=== PATIENT | female | born 1935 | race Caucasian/White ===

== ENCOUNTER 2016-12-17 12:00 | Outpatient (CLI) | payer MEDICARE ==
[2016-12-17] MEDS ORDERED: GADOBUTROL 7.5 MMOL/7.5 ML VIAL IVP ONE (13:04)
--- NOTE | 2016-12-18 15:24 | MRI Report ---
EXAM: MRI LUMBAR SPINE WITHOUT AND WITH CONTRAST EXAM DATE: 12/17/2016 01:18 PM. CLINICAL HISTORY: Chronic low back pain for 2 years. Difficulty walking. Greater on the left. COMPARISONS: MRI lumbar spine 01/25/2016. TECHNIQUE: Multiplanar, multisequence T1-weighted and fluid-sensitive sequences of the lumbar spine b efore and after administration of intravenous contrast. IV contrast: 6.5 mL Gadavist. Other: None. FINDINGS: A 10 mm well-circumscribed T2 hyperintense focus which does not demonstrate enhancement and is T1 hyp ointense is seen in the pancreatic head on the axial images. No suspicious marrow replacement is identified in the cervical vertebral bodies. No nodular enhanceme nt is seen along the cauda equina nerve roots. The distal tip of the conus medullaris is seen at the level of the L1-L2 disk space. Enhancement involving the endplates at L5-S1 is felt to be diskogenic. There is patchy enhancement in the soft tissues adjacent to the facet joint bilateral L5-S1. There is patchy edema in these regions on the comparison study. Grade 1 retrolisthesis of L1 relative to L2 and L2 relative to L3 is again seen. Grade 1 anterolisthe sis of L5 relative to S1 is again seen. Loss of disk space height throughout the lumbar spine greates t at L4-L5 and L5-S1 is again seen. T10T11: Incompletely visualized. No central canal stenosis. T11 through L1: No central canal stenosis. L1-L2: A mild to moderate posterior disk protrusion is stable. No central canal or foraminal stenosis . L2-L3: A mild to moderate posterior disk protrusion is seen greater towards the right. Mild right for aminal stenosis is present. Superior lateral recess stenosis bilaterally greater on the right relativ e to the left is again seen. These findings are stable. L3-L4: A mild to moderate posterior disk protrusion is seen. Superior lateral recess narrowing is see n bilaterally. Mild bilateral foraminal stenosis is stable. L4-L5: A mild posterior disk protrusion is seen. There is a foraminal and far lateral component of th e disk protrusion particularly on the right. Superior lateral recess narrowing is seen bilaterally. N o central canal or foraminal stenosis. These findings are stable. L5-S1: A moderate posterior disk protrusion is seen with disk material extending into the foramen addison aterally. There is mild right and tesl-qy-kirnmnun left foraminal stenosis. Superior lateral recess s tenosis is seen bilaterally greater on the left relative to the right. Facet/ligamentum flavum hypertrophy is seen throughout the lumbar spine greatest in the lower lumbar spine. IMPRESSION: 1. Stable MRI of the lumbar spine. 2. No osseous metastatic disease. 3. Degenerative disk disease, spondylolisthesis, and facet hypertrophy are present at multiple levels discussed in detail. 4. No central canal stenosis. 5. Multilevel foraminal stenosis. This is greatest on the left at L5-S1. 6. Facet arthrosis is seen at multiple levels. The enhancement associated with the facet joints bilat erally at L5-S1 likely reflects more active areas of facet joint synovitis. 7. A T2 hyperintensity in the pancreatic head is seen on the comparison MRI. This could reflect a cys tic pancreatic lesion, either a pseudocyst or low-grade cystic pancreatic neoplasm. This is not prese nt on a comparison CT scan from 01/14/2007. Comment: The following findings are so common in adults without low back pain that while we report th eir presence, they must be interpreted with caution and in the context of the clinical situation. (Re oriana Chacko et al, Spine 2001) Prevalence of findings in patients without low back pain: Disk degeneration (any evidence): 92% Disk desiccation/T2 signal loss: 83% Disk height loss: 56% Disk bulge: 64% Disk protrusion: 32% Annular tear/high intensity zone: 38% [facility] Referring Provider Line: [phone] SITE ID: [id number]
== END 2016-12-17 12:01 | disposition home or self-care (01) ==
LOC: LAB 12:00
PROVIDERS: ATTEND Physician Assistant Medical
DX: M51.36 Other intervertebral disc degeneration, lumbar region (principal); M51.37 Other intervertebral disc degeneration, lumbosacral region; M47.896 Other spondylosis, lumbar region; M47.897 Other spondylosis, lumbosacral region; M43.16 Spondylolisthesis, lumbar region; M43.17 Spondylolisthesis, lumbosacral region; M51.26 Other intervertebral disc displacement, lumbar region; M51.27 Other intervertebral disc displacement, lumbosacral region
CPT/HCPCS: 72158; A9585

== ENCOUNTER 2016-12-23 11:20 | Outpatient (CLI) | payer MEDICARE ==
[2016-12-23 18:57] LABS: BASOPHILS # (AUTO) 0.1 10^3/uL (0.0-0.1); EOSINOPHILS # (AUTO) 0.2 10^3/uL (0.0-0.7); EOSINOPHILS % (AUTO) 2.6 %; HCT - HEMATOCRIT 42.3 % (37.0-47.0); LYMPHOCYTES # (AUTO) 1.4 10^3/uL (1.5-3.5); LYMPHOCYTES % (AUTO) 20.6 %; MEAN CORPUSCULAR HEMOGLOBIN 30.4 pg (27.0-31.0); MEAN CORPUSCULAR HGB CONC 33.1 g/dL (32.0-36.0); MEAN PLATELET VOLUME 9.2 fL (7.9-10.8); MONOCYTES # (AUTO) 0.5 10^3/uL (0.0-1.0); MONOCYTES % (AUTO) 7.9 %; NEUTROPHILS # (AUTO) 4.5 10^3/uL (1.5-6.6); NEUTROPHILS % (AUTO) 67.9 %; NUCLEATED RED BLOOD CELLS AUTO 0.1 /100WBC; RED CELL DISTRIBUTION WIDTH 13.7 % (12.0-15.0); UNCORRECTED WHITE BLOOD COUNT 6.7 x10^3/uL; WHITE BLOOD COUNT 6.7 x10^3/uL (4.8-10.8)
[2016-12-23 19:30] LABS: ALBUMIN/GLOBULIN RATIO 1.7 (1.0-2.2); BILIRUBIN,TOTAL 0.5 mg/dL (0.2-1.0); CALCIUM 9.4 mg/dL (8.5-10.3); CREATININE 0.9 mg/dL (0.4-1.0); TOTAL PROTEIN 6.9 g/dL (6.7-8.2)
== END 2016-12-23 11:21 | disposition home or self-care (01) ==
LOC: LAB.WCP 11:20
PROVIDERS: ATTEND Family Medicine
DX: R93.5 Abnormal findings on diagnostic imaging of other abdominal regions, including retroperitoneum (principal)
CPT/HCPCS: 36415; 80053; 82150; 83690; 85025

== ENCOUNTER 2016-12-29 15:48 | Outpatient (CLI) | payer MEDICARE ==
--- NOTE | 2017-01-08 14:35 | Mammography Report ---
DIGITAL SCREENING MAMMOGRAM: 12/29/2016 CLINICAL INDICATION: A 81-year-old with personal history of right breast cancer status post lumpecto my and radiation therapy, family history of breast cancer for screening. COMPARISON: Previous films from [place], [place] dated 01/30/2011, 12/23/2009, 07/12/2009, 10/09/2015. TECHNIQUE: Routine CC and MLO projections were obtained of the breasts. FINDINGS: The breasts demonstrate heterogeneously dense fibroglandular parenchyma bilaterally. Post operative and post-treatment changes in the right breast are stable. No suspicious masses, clustered microcalcifications, or regions of architectural distortion are identified IMPRESSION: BENIGN FINDINGS. RECOMMENDATION: Routine annual screening unless otherwise clinically indicated. BIRADS CATEGORY 2 - BENIGN FINDINGS. STANDARD QUALIFYING STATEMENTS 1. This examination was reviewed with the aid of Computer-Aided Detection (CAD). 2. A negative or benign imaging report should not delay biopsy if clinically suspicious findings are present. Consider surgical consultation if warranted. More than 5% of cancers are not identified by i maging. 3. Dense breasts may obscure an underlying neoplasm. JOB #: [id number] EXT JOB #:[id number]
== END 2016-12-29 15:49 | disposition home or self-care (01) ==
LOC: DI.N 15:48
PROVIDERS: ATTEND Family Medicine
DX: Z12.31 Encounter for screening mammogram for malignant neoplasm of breast (principal); Z85.3 Personal history of malignant neoplasm of breast
CPT/HCPCS: 77067

== ENCOUNTER 2017-10-26 08:16 | Outpatient (CLI) | payer MEDICARE ==
[2017-10-26] MEDS ORDERED: IOPAMIDOL-300 100 ML VIAL ONE (08:41)
[2017-10-26 08:54] LABS: ALBUMIN 4.2 g/dL (3.2-5.5); ALBUMIN/GLOBULIN RATIO 1.5 (1.0-2.2); BILIRUBIN,TOTAL 0.6 mg/dL (0.2-1.0); CALCIUM 9.3 mg/dL (8.5-10.3); CREATININE 0.9 mg/dL (0.4-1.0)
[2017-10-26] MEDS ORDERED: IOPAMIDOL-300 100 ML VIAL IVP ONE (10:03)
--- NOTE | 2017-10-26 15:22 | CT Report ---
EXAM: CT ABDOMEN EXAM DATE: 10/26/2017 09:41 AM. CLINICAL HISTORY: Pancreatic cyst. COMPARISON: Abdominal CT 01/14/2007. TECHNIQUE: Routine helical CT imaging was performed through the abdomen during arterial and venous ph ases. IV contrast: 100 cc Isovue-300 Enteric contrast: No. Reconstruction: Coronal and sagittal. In accordance with CT protocol optimization, one or more of the following dose reduction techniques w ere utilized for this exam: automated exposure control, adjustment of mA and/or KV based on patient s ize, or use of iterative reconstructive technique. FINDINGS: Lung Bases: Unremarkable. Liver: Normal. No masses. Gallbladder/Bile Ducts: Unremarkable. Spleen: Normal. Pancreas: Partial fatty replacement throughout the pancreas. No enhancing mass or main pancreatic sarah ruben dilatation. 2 small questionable cysts are potentially demonstrated. One measuring 1 x 0.9 cm wit hin pancreatic head on series 4 image 39; the second within anterior pancreatic tail measuring 1 x 0. 8 cm on image 38. Adrenal Glands: Normal. Kidneys: Normal. No masses or hydronephrosis. Peritoneal Cavity/Bowel: Extensive diverticulosis. Appendix not definitively demonstrated. Inferior p ortion of cecum was not imaged. Vasculature: No abdominal aortic aneurysm. Extensive atherosclerotic arterial calcifications. Retroao rtic left renal vein, normal variant. Bones: Moderate pectus excavatum with Ahsan index 3.24. Lumbar spine degenerative changes. Diffuse idiopathic skeletal hyperostosis noted, most pronounced wi thin the lower thoracic spine. Other: None. IMPRESSION: 1. No enhancing pancreatic mass or main pancreatic ductal dilatation. Questionable small pancreatic c ysts measuring up to 1 cm within pancreatic head and anterior tail. (MRI/MRCP is a more sensitive mod ality and could be performed if clinically warranted.) Correlation with prior exams demonstrating a p ancreatic cyst could also be helpful. 2. Diverticulosis without evidence for diverticulitis. [facility] Referring Provider Line: [phone] SITE ID: [id number]
== END 2017-10-26 08:17 | disposition home or self-care (01) ==
LOC: LAB 08:16 → DI 08:17
PROVIDERS: ATTEND Family Medicine
DX: K86.2 Cyst of pancreas (principal)
CPT/HCPCS: 36415; 74160; 80053; Q9967

== ENCOUNTER 2018-01-05 11:02 | Outpatient (CLI) | payer MEDICARE ==
--- NOTE | 2018-01-06 17:17 | Mammography Report ---
Procedure Date: 01/05/2018 Accession Number: [id number] / [id number] Procedure: MGN - Screening Mammo Dig Bilat CPT Code: FULL RESULT: EXAM: Screening Mammo Dig Bilat DATE: 01/05/2018 11:21 AM CLINICAL HISTORY: 82-year-old female with history of breast cancer status post lumpectomy and radiation on the right breast. TECHNIQUE: Bilateral CC and MLO views were obtained. COMPARISON: 12/29/2016, 12/23/2009. FINDINGS: The breasts demonstrate heterogeneously dense fibroglandular parenchyma bilaterally. Postsurgical and posttreatment changes are seen in the right breast. Typically benign vascular calcifications are seen bilaterally. No suspicious masses, clustered microcalcifications, or regions of architectural distortion are identified. IMPRESSION: Benign findings RECOMMENDATION: Routine annual screening unless otherwise clinically indicated. BIRADS CATEGORY 2: Benign findings STANDARD QUALIFYING STATEMENTS: 1. This examination was reviewed with the aid of Computer-Aided Detection (CAD). 2. A negative or benign imaging report should not delay biopsy if clinically suspicious findings are present. Consider surgical consultation if warrented. More than 5% of cancers are not identified by imaging. 3. Dense breasts may obscure an underlying neoplasm.
== END 2018-01-05 11:03 | disposition home or self-care (01) ==
LOC: DI.N 11:02
PROVIDERS: ATTEND Family Medicine
DX: Z12.31 Encounter for screening mammogram for malignant neoplasm of breast (principal); Z85.3 Personal history of malignant neoplasm of breast; Z92.3 Personal history of irradiation
CPT/HCPCS: 77067

== ENCOUNTER 2018-01-25 12:51 | Emergency (ER) | payer MEDICARE ==
[2018-01-25 13:24] LABS: BASOPHILS # (AUTO) 0.1 10^3/uL (0.0-0.1); BASOPHILS % (AUTO) 1.2 %; EOSINOPHILS # (AUTO) 0.2 10^3/uL (0.0-0.7); HGB - HEMOGLOBIN 14.4 g/dL (12.0-16.0); LYMPHOCYTES # (AUTO) 1.3 10^3/uL (1.5-3.5); LYMPHOCYTES % (AUTO) 21.8 %; MEAN CORPUSCULAR HEMOGLOBIN 31.2 pg (27.0-31.0); MEAN CORPUSCULAR HGB CONC 34.3 g/dL (32.0-36.0); MEAN CORPUSCULAR VOLUME 90.9 fL (81.0-99.0); MEAN PLATELET VOLUME 8.4 fL (7.9-10.8); MONOCYTES # (AUTO) 0.5 10^3/uL (0.0-1.0); MONOCYTES % (AUTO) 7.8 %; NEUTROPHILS % (AUTO) 66.2 %; PLT - PLATELET COUNT 203 10^3/uL (130-450); RED BLOOD COUNT 4.62 10^6/uL (4.20-5.40); RED CELL DISTRIBUTION WIDTH 13.4 % (12.0-15.0); WHITE BLOOD COUNT 6.1 x10^3/uL (4.8-10.8)
[2018-01-25 13:39] LABS: ALBUMIN 4.4 g/dL (3.2-5.5); ALBUMIN/GLOBULIN RATIO 1.6 (1.0-2.2); BILIRUBIN,TOTAL 0.5 mg/dL (0.2-1.0); CALCIUM 9.4 mg/dL (8.5-10.3); CREATININE 0.8 mg/dL (0.4-1.0); TOTAL PROTEIN 7.2 g/dL (6.7-8.2)
--- NOTE | 2018-01-25 15:08 | ED Physician Documentation ---
History of Present Illness - Stated complaint Stated Complaint: HIGH BP,DIZZY,RINGING IN EARS,HEADACHE - Chief complaint Chief Complaint: Neuro - History obtained from History obtained from: Patient - History of Present Illness Timing: Chronic Pain level max: 0 Pain level now: 0 Improved by: taking her antihypertensive medications Worsened by: nothing - Additonal information Additional information: states blood pressure has been higher than normal. Occasionally feels lightheaded. Feels normal now. No chest pain. No shortness of breath. no focal weakness or numbness. no vision changes. Review of Systems Ten Systems: 10 systems reviewed and negative Constitutional: denies: Fever, Chills Eyes: denies: Loss of vision, Decreased vision, Photophobia Ears: denies: Ear pain Nose: denies: Rhinorrhea / runny nose, Congestion Throat: denies: Sore throat Cardiac: denies: Chest pain / pressure, Palpitations Respiratory: denies: Dyspnea, Cough GI: denies: Abdominal Pain, Vomiting, Diarrhea Skin: denies: Rash Musculoskeletal: denies: Neck pain, Back pain Neurologic: denies: Focal weakness, Numbness, Confused, Altered mental status, Headache PD PAST MEDICAL HISTORY - Past Medical History Cardiovascular: Hypertension Neuro: CVA - Past Surgical History Past Surgical History: Yes /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 - Present Medications Home Medications: Ambulatory Orders Medication Instructions Recorded Confirmed Aspirin [Aspirin EC] 80 mg ORAL DAILY 02/01/14 02/01/14 Losartan [Cozaar] 02/01/14 02/01/14 - Allergies Allergies/Adverse Reactions: Allergies Allergy/AdvReac Type Severity Reaction Status Date / Time No Known Drug Allergies Allergy Verified 01/25/18 13:03 - Social History Does the pt smoke?: No Smoking Status: Never smoker Does the pt drink ETOH?: Yes Does the pt have substance abuse?: No - Immunizations Immunizations are current?: Yes PD ED PE NORMAL - Vitals Vital signs reviewed: Yes - General General: Alert and oriented X 3, No acute distress, Well developed/nourished - HEENT HEENT: PERRL, Ears normal, Moist mucous membranes, Pharynx benign - Neck Neck: Supple, no meningeal sign, No JVD, No bruit - Cardiac Cardiac: RRR, Strong equal pulses - Respiratory Respiratory: No respiratory distress, Clear bilaterally - Abdomen Abdomen: Soft, Non tender, Non distended - Derm Derm: Warm and dry, No rash - Extremities Extremities: No edema, No calf tenderness / cord - Neuro Neuro: Alert and oriented X 3, linen controller 2-12 intact, No motor deficit, No sensory deficit Eye Opening: Spontaneous Motor: Obeys Commands Verbal: Oriented GCS Score: 15 - Psych Psych: Normal mood, Normal affect Results - Vitals Vitals: Vital Signs - 24 hr 01/25/18 01/25/18 01/25/18 12:58 13:24 14:00 Temperature 35.8 C L Heart Rate 69 69 62 Respiratory 18 16 15 Rate Blood Pressure 141/101 H 172/92 H 152/92 H O2 Saturation 99 99 93 01/25/18 01/25/18 14:30 15:00 Temperature Heart Rate 65 64 Respiratory 16 15 Rate Blood Pressure 161/81 H 175/88 H O2 Saturation 96 96 Oxygen O2 Source Room air - EKG (time done) 1318 Rate: Rate (enter#) (64) Rhythm: NSR [place]: Normal Intervals: Normal NC QRS: Normal Ischemia: Normal ST segments, Q waves (III, aVF) - Labs Labs: Laboratory Tests 01/25/18 01/25/18 01/25/18 13:15 13:15 13:15 WBC 6.1 RBC 4.62 Hgb 14.4 Hct 42.0 MCV 90.9 MCH 31.2 H MCHC 34.3 RDW 13.4 Plt Count 203 MPV 8.4 Neut # (Auto) 4.0 Lymph # (Auto) 1.3 L Sargent # (Auto) 0.5 Eos # (Auto) 0.2 Baso # (Auto) 0.1 Absolute Nucleated RBC 0.00 Nucleated RBC % 0.0 Sodium 138 Potassium 4.0 Chloride 101 Carbon Dioxide 28 Anion Gap 9.0 BUN 18 Creatinine 0.8 Estimated GFR (MDRD) 69 L Glucose 101 H Calcium 9.4 Total Bilirubin 0.5 AST 23 ALT 14 Alkaline Phosphatase 65 Troponin I < 0.04 Total Protein 7.2 Albumin 4.4 Globulin 2.8 Albumin/Globulin Ratio 1.6 Lipase 51 PD MEDICAL DECISION MAKING - ED course Complexity details: reviewed results, re-evaluated patient, considered differential, d/w patient ED course: Patient is an 82-year-old female with asymptomatic hypertension today. Blood pressure decreased in the emergency department. No evidence of acute coronary syndrome. No evidence of stroke, endorgan damage. We will have her keep a log of her blood pressures at home and follow-up closely with her primary care provider for further evaluation. Patient counseled regarding signs and symptoms for which I believe and urgent re-evaluation would be necessary. Patient with good understanding of and agreement to plan and is comfortable going home at this time This document was made in part using voice recognition software. While efforts are made to proofread this document, sound alike and grammatical errors may occur. - Sepsis Event Vital Signs: Vital Signs - 24 hr 01/25/18 01/25/18 01/25/18 12:58 13:24 14:00 Temperature 35.8 C L Heart Rate 69 69 62 Respiratory 18 16 15 Rate Blood Pressure 141/101 H 172/92 H 152/92 H O2 Saturation 99 99 93 01/25/18 01/25/18 14:30 15:00 Temperature Heart Rate 65 64 Respiratory 16 15 Rate Blood Pressure 161/81 H 175/88 H O2 Saturation 96 96 Oxygen O2 Source Room air Departure - Departure Disposition: 01 Home, Self Care Clinical Impression: Hypertension Qualifiers: Hypertension type: unspecified Qualified Code(s): I10 - Essential (primary) hypertension Condition: Good Instructions: ED HTN Established Follow-Up: Naseem Brooks MD [Primary Care Provider] - Within 1 week Comments: Continue you medications at home. Keep track of your blood pressures at home and bring them to your doctor to adjust your medications. Return if you worsen. Discharge Date/Time: 01/25/18 15:10
[2018-01-25 16:57] VITALS: BP 175/88
== END 2018-01-25 15:10 | disposition home or self-care (01) ==
LOC: ED 12:51
DX: I10 Essential (primary) hypertension (principal); Z86.73 Personal history of transient ischemic attack (TIA), and cerebral infarction without residual deficits
CPT/HCPCS: 36415; 80053; 83690; 84484; 85025; 93005; 99283; 99284

== ENCOUNTER 2018-12-10 08:46 | Outpatient (CLI) | payer MEDICARE ==
[2018-12-10] MEDS ORDERED: GADOBUTROL 10 MMOL/10 ML VIAL ONE (09:33)
[2018-12-10] MEDS ORDERED: GADOBUTROL 10 MMOL/10 ML VIAL IVP ONE (10:22)
--- NOTE | 2018-12-12 08:57 | MRI Report ---
Reason: PANCREATIC CYSTS RECOMMENDED ON CT SCAN Procedure Date: 12/10/2018 Accession Number: [id number] / [id number] Procedure: MRI - MRCP W/WO CPT Code: FULL RESULT: EXAM: MR ABDOMEN WITH AND WITHOUT CONTRAST (MR PANCREAS AND MRCP) EXAM DATE: 12/10/2018 10:57 AM. CLINICAL HISTORY: Pancreatic cysts seen on CT scan. COMPARISON: CT abdomen with contrast 10/26/2017. TECHNIQUE: Multiplanar breath-hold T1, T2, and DWI sequences obtained through the pancreas and abdomen on an MR scanner. Dedicated 2D and 3D MRCP sequences obtained through the biliary and pancreatic ducts. Images obtained before and after administration of 8 mL Gadavist intravenous contrast. Multiphase postcontrast sequences obtained through the pancreas. FINDINGS: Lung Bases: Unremarkable. Liver: The liver has normal size, morphology and signal. No evidence of mass. Gallbladder: The gallbladder is partially distended and appears normal with no wall thickening or stone. Bile Ducts: No intrahepatic or extrahepatic duct dilatation. Pancreas: Partially atrophic pancreas with fatty replacement. Normal 2 mm main pancreatic duct diameter. There are at least 8 scattered simple-appearing cysts within the pancreas, measuring up to 1.8 x 1.0 cm on series 1201 image 42. A similar finding on abdominal CT 10/26/2017 coronal image 29. There is a cluster of cysts within distal pancreatic body measuring up to 1.7 x 1.1 cm combined on image 66. In general, the pancreatic cysts are much better defined by MRI due to improved soft tissue/water resolution with MRI. Spleen: The spleen appears normal. Series 1201 image 42. Kidneys: The kidneys appear normal with no mass or hydronephrosis. Adrenals: The adrenals appear normal. Bowel: Diverticulosis. Retroperitoneum: Lumbar spine degenerative changes. No bulky adenopathy. Other: Pectus excavatum. IMPRESSION: 1. At least 8 scattered simple-appearing cystic lesions within the pancreas. Largest lesion within pancreatic head appears similar to CT 10/26/2017. No main pancreatic ductal dilatation. Potential sidebranch IPMN. Recommend follow-up MRI/MRCP in 2 years. 2. Diverticulosis. malik Bahnea al, "Management of Incidental Pancreatic Cysts: A White Paper of the ACR Incidental Findings Committee," JACR 2017; 14: 911-921. [facility]
== END 2018-12-10 08:47 | disposition home or self-care (01) ==
LOC: DI 08:46
PROVIDERS: ATTEND Surgery
DX: K86.2 Cyst of pancreas (principal); K57.30 Diverticulosis of large intestine without perforation or abscess without bleeding
CPT/HCPCS: 74183; A9585

== ENCOUNTER 2018-12-29 11:58 | Day surgery (SDC) | payer MEDICARE ==
[2018-12-29] MEDS ORDERED: LACTATED RINGERS 1,000 ML IV ONE (12:37)
[2018-12-29] MEDS ORDERED: LIDO GARGLE 30 ML BOTTLE ONE (13:30)
[2018-12-29] MEDS ORDERED: BENZOCAINE/TETRACAINE/BUTAMBEN 20 GM TOP ONE (13:39)
[2018-12-29] MEDS ORDERED: MIDAZOLAM 2 MG/2 ML VIAL IVP ONE (13:59)
[2018-12-29] MEDS ORDERED: fentaNYL 250 MCG/5 ML VIAL IVP ONE (13:59)
[2018-12-29 15:33] VITALS: BP 137/77
== END 2018-12-29 11:59 | disposition home or self-care (01) ==
LOC: SDS 11:58
PROVIDERS: ATTEND Surgery
PROC: 0DJ08ZZ Inspection of Upper Intestinal Tract, Via Natural or Artificial Opening Endoscopic (ICD-10-PCS; principal; 2018-12-29 13:15)
PROC: 0DJD8ZZ Inspection of Lower Intestinal Tract, Via Natural or Artificial Opening Endoscopic (ICD-10-PCS; 2018-12-29 13:15)
DX: Z12.11 Encounter for screening for malignant neoplasm of colon (principal); K21.0 Gastro-esophageal reflux disease with esophagitis; K57.30 Diverticulosis of large intestine without perforation or abscess without bleeding; K22.5 Diverticulum of esophagus, acquired; K44.9 Diaphragmatic hernia without obstruction or gangrene; K86.2 Cyst of pancreas; K64.4 Residual hemorrhoidal skin tags; E78.00 Pure hypercholesterolemia, unspecified; I10 Essential (primary) hypertension; R32 Unspecified urinary incontinence; N32.81 Overactive bladder; M50.30 Other cervical disc degeneration, unspecified cervical region; M51.36 Other intervertebral disc degeneration, lumbar region; M54.30 Sciatica, unspecified side; I70.0 Atherosclerosis of aorta; J30.9 Allergic rhinitis, unspecified; M48.062 Spinal stenosis, lumbar region with neurogenic claudication; R05 Cough; I49.9 Cardiac arrhythmia, unspecified; Z79.82 Long term (current) use of aspirin; Z86.19 Personal history of other infectious and parasitic diseases; Z85.3 Personal history of malignant neoplasm of breast; Z86.73 Personal history of transient ischemic attack (TIA), and cerebral infarction without residual deficits; Z87.891 Personal history of nicotine dependence
CPT/HCPCS: 43235; A9270; G0121; J7120

== ENCOUNTER 2019-02-01 11:12 | Outpatient (CLI) | payer MEDICARE ==
--- NOTE | 2019-02-01 16:13 | Mammography Report ---
Reason: RT BREAST PAIN Procedure Date: 02/01/2019 Accession Number: [id number] / [id number] Procedure: PERRY - Diagnostic Dig Bilat CPT Code: FULL RESULT: EXAM: Diagnostic Dig Bilat DATE: 02/01/2019 12:16 PM CLINICAL HISTORY: Personal history of right breast cancer. Right breast tenderness. TECHNIQUE: (B) - Bilateral CC and MLO views were obtained. COMPARISON: 01/05/2018, 12/29/2016, 01/30/2011 and 12/23/09 PARENCHYMAL PATTERN: (D) - The breasts demonstrate heterogeneously dense fibroglandular parenchyma bilaterally. FINDINGS: No significant interval change. Post therapy architectural distortion and calcifications right breast stable. There are no new suspicious masses, calcifications, or areas of distortion. IMPRESSION: Benign findings. BI-RADS category 2. RECOMMENDATION: (ANNUAL) - Recommend routine annual screening mammography. BI-RADS CATEGORY: (2) - Benign Findings. STANDARD QUALIFYING STATEMENTS: 1. This examination was not reviewed with the aid of Computer-Aided Detection (CAD). 2. A negative or benign imaging report should not preclude biopsy if clinically suspicious findings are present. 3. Dense breasts may obscure an underlying neoplasm. 4. This examination was reviewed with the aid of 3D breast imaging (tomosynthesis).
== END 2019-02-01 11:13 | disposition home or self-care (01) ==
LOC: DI 11:12
PROVIDERS: ATTEND Family Medicine
DX: N64.4 Mastodynia (principal); Z85.3 Personal history of malignant neoplasm of breast
CPT/HCPCS: 77066

== ENCOUNTER 2020-11-11 17:10 | Emergency (ER) | payer MEDICARE ==
[2020-11-11] MEDS ORDERED: IOVERSOL 320 100 ML VIAL IVP ONE ×2 (17:33→19:32)
[2020-11-11 17:44] LABS: BASOPHILS % (AUTO) 0.6 %; EOSINOPHILS # (AUTO) 0.2 10^3/uL (0.0-0.7); EOSINOPHILS % (AUTO) 2.6 %; HCT - HEMATOCRIT 44.7 % (37.0-47.0); HGB - HEMOGLOBIN 14.3 g/dL (12.0-16.0); LYMPHOCYTES # (AUTO) 1.1 10^3/uL (1.5-3.5); LYMPHOCYTES % (AUTO) 16.3 %; MEAN CORPUSCULAR HEMOGLOBIN 29.5 pg (27.0-31.0); MEAN CORPUSCULAR VOLUME 92.4 fL (81.0-99.0); MEAN PLATELET VOLUME 9.7 fL (7.9-10.8); MONOCYTES # (AUTO) 0.6 10^3/uL (0.0-1.0); MONOCYTES % (AUTO) 8.7 %; NEUTROPHILS # (AUTO) 4.9 10^3/uL (1.5-6.6); NEUTROPHILS % (AUTO) 71.4 %; PLT - PLATELET COUNT 219 10^3/uL (130-450); RED BLOOD COUNT 4.84 10^6/uL (4.20-5.40); RED CELL DISTRIBUTION WIDTH 13.2 % (12.0-15.0); WHITE BLOOD COUNT 6.9 x10^3/uL (4.8-10.8)
[2020-11-11 17:58] LABS: ALBUMIN 4.3 g/dL (3.2-5.5); ALBUMIN/GLOBULIN RATIO 1.4 (1.0-2.2); BILIRUBIN,TOTAL 0.6 mg/dL (0.2-1.0); CALCIUM 9.6 mg/dL (8.5-10.3); CREATININE 0.9 mg/dL (0.4-1.0); POTASSIUM 3.9 mmol/L (3.5-5.0); TOTAL PROTEIN 7.3 g/dL (6.7-8.2)
--- NOTE | 2020-11-11 19:47 | CT Report ---
PROCEDURE: ANGIO HEAD W/WO INDICATIONS: headache, history of aneurysm CONTRAST: IV CONTRAST: Optiray 320 ml: 80 PO CONTRAST: *NO PO CONTRAST TECHNIQUE: Precontrast 4.5 mm thick angled axial sections acquired from the foramen magnum to the vertex. Afte r the administration of intravenous contrast, 1 mm thick sections acquired through the [place] of [place] is. Postcontrast 4.5 mm thick sections then re-acquired from the foramen magnum to the vertex. 3-di mensional jtgsepz-cuarnyjoe-biogwmcpgy (MIP) and/or volume rendering reformats were acquired of the c entral intracranial vasculature. For radiation dose reduction, the following was used: automated ex posure control, adjustment of mA and/or kV according to patient size. COMPARISON: None. FINDINGS: Image quality: Excellent. Anterior circulation: There is suggestion of high-grade stenosis to occlusion involving most distal i ntracranial portion of right internal carotid artery. Distal left internal carotid artery is normal i n size and flow. There is nonvisualization of right middle cerebral artery and A1 segment of the righ t anterior cerebral artery more distal portion of right anterior cerebral artery is supplied from nor mal-appearing left anterior cerebral artery via anterior communicating artery. No aneurysm is noted. There is paucity of contrast opacification of the more distal right MCA branches. Posterior circulation: Visualized portions of the vertebral arteries demonstrate normal caliber, and join to form a normal appearing basilar artery. Flow within the posterior cerebral arteries is norm al and symmetric. No aneurysms are seen. CSF spaces: Ventricles are normal in size and shape. Basal cisterns are patent. No extra-axial flu id collections. Brain: No midline shift. There is diffuse cerebral and cerebellar cortical atrophy. Mild to moderate periventricular and deep white matter chronic small vessel ischemic changes are seen with mild-to-mo derate hypodensity. No intracranial bleeds or masses. Palmer-white matter interface appears intact. N o area of abnormal intracranial enhancement is seen. Skull and face: Calvarium and facial bones appear intact, without suspicious lesions. Sinuses: Visualized sinuses and mastoids are clear. IMPRESSION: 1. Suggestion of high-grade stenosis/occlusion involving most distal intracranial portion of right in ternal carotid artery with nonvisualization of normal right middle cerebral artery and A1 segment of right anterior cerebral artery. Decrease contrast opacification of right cerebral artery branches co mpared to the left side. 2. No hemodynamically significant stenosis or aneurysm is seen in left anterior and middle cerebral a rteries. No hemodynamically significant stenosis or aneurysm is seen in posterior circulation. 3. No CT evidence of acute intracranial bleed, midline shift or mass effect. No area of abnormal cont rast enhancement. No CT evidence of acute infarct is noted at this time. 4. Diffuse cerebral and cerebellar cortical atrophy and cvpc-vc-wdeigcrd white matter chronic small v essel ischemic changes. Reviewed by: Fausto Castellanos MD on 11/11/2020 7:46 PM PDT Approved by: Fausto Castellanos MD on 11/11/2020 7:46 PM PDT Station ID: [id number]
--- NOTE | 2020-11-11 20:08 | CT Report ---
PROCEDURE: ANGIO NECK W INDICATIONS: headache, history of aneurysm CONTRAST: IV CONTRAST: Optiray 320 ml: 80 PO CONTRAST: *NO PO CONTRAST TECHNIQUE: After the administration of intravenous contrast, 1.5 mm axial sections acquired from the aortic arch to the [place]. Coronal 3-D maximum intensity projection (MIP) and/or volume rendering ref ormats were then performed. For radiation dose reduction, the following was used: automated exposur e control, adjustment of mA and/or kV according to patient size. COMPARISON: None. FINDINGS: Image quality: Excellent. Carotid system: The great vessels demonstrate a conventional anatomy as they arise from the aortic a [facility]. The origins of the common carotid arteries appear patent. The common carotid arteries demonstr ate normal calibers and courses. Extensive atherosclerotic disease involving right carotid bulb and o rigin of right internal carotid artery is seen with greater than 50% stenosis throughout the length o f right internal carotid artery. There is suggestion of high-grade stenosis to occlusion involving mo st distal intracranial portion of right internal carotid artery. Atherosclerotic disease is also seen involving distal left carotid bulb and origin of left internal carotid artery without hemodynamicall y significant stenosis or aneurysm. More distal left common carotid artery is normal in caliber. Posterior circulation: The origins of the vertebral arteries appear patent. The more superior porti ons of the vertebral arteries demonstrate normal course and caliber. They join to form a normal appe aring basilar artery. Soft tissues: Visualized neck soft tissues demonstrate no suspicious abnormalities. The thyroid is normal in size and there are no incidental findings. Bones: No suspicious bony lesions. Visualized cervical spine appears normally aligned. IMPRESSION: 1. Extensive atherosclerotic disease throughout the course of right internal carotid artery and right carotid bulb with greater than 50% stenosis. There is suggestion of high-grade stenosis to occlusion involving most distal intracranial portion of right internal carotid artery better evaluated on CT a ngiogram of head performed on the same day. 2. No hemodynamically significant stenosis is seen in left carotid arteries or vertebral arteries. The estimate of stenosis included in the report of the imaging study was calculated using the NASCET method CLINICAL RECOMMENDATION STATEMENTS: In patients <35 years with an ITN detected on CT, MRI, or extrathyroidal ultrasound, the Committee re commends further evaluation with dedicated thyroid ultrasound if the nodule is ?1 cm and has no suspi cious imaging features, and if the patient has normal life expectancy. In patients ?35 years with an ITN detected on CT, MRI, or extrathyroidal ultrasound, the Committee re commends further evaluation with dedicated thyroid ultrasound if the nodule is ?1.5 cm and has no puja picious imaging features, and if the patient has normal life expectancy. (ACR, 2014) Reviewed by: Fausto Castellanos MD on 11/11/2020 8:07 PM PDT Approved by: Fausto Castellanos MD on 11/11/2020 8:07 PM PDT Station ID: [id number]
--- NOTE | 2020-11-11 20:17 | ED Physician Documentation ---
History of Present Illness - Stated complaint Stated Complaint: SADLER - Chief complaint Chief Complaint: Neuro - History obtained from History obtained from: Patient - History of Present Illness Timing: How many days ago (3) Pain level max: 6 Pain level now: 2 - Additonal information Additional information: 85-year-old female states that she has had a headache for the past 3 days. She states it is intermittent. She states that she is visiting from [place]. She states when she was in [place] about a month ago she was in the hospital for a week for an alleged stroke. She states that they found an aneurysm on her head CT and she is concerned about an aneurysm rupture. The headache is right-sided. Worse with light and sound. Better with rest. No vomiting. Intermittent for the past 3 days. Currently the headache is about a 2 out of 10. 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 - Present Medications Home Medications: Ambulatory Orders Medication Instructions Recorded Confirmed Losartan [Cozaar] 25 mg PO DAILY 02/01/14 11/11/20 Mirabegron [Myrbetriq] 25 mg PO DAILY 12/28/18 11/11/20 Omeprazole 20 mg PO DAILY 12/28/18 11/11/20 - Allergies Allergies/Adverse Reactions: Allergies Allergy/AdvReac Type Severity Reaction Status Date / Time No Known Drug Allergies Allergy Verified 11/11/20 17:14 - Social History Does the pt smoke?: No Smoking Status: Former smoker Does the pt drink ETOH?: Yes ETOH Use: Wine Does the pt have substance abuse?: No - Immunizations Immunizations are current?: Yes PD ED PE NORMAL - Vitals Vital signs reviewed: Yes - General General: Alert and oriented X 3, No acute distress - HEENT HEENT: Atraumatic, PERRL, EOMI, Ears normal, Moist mucous membranes, Pharynx benign - Neck Neck: Supple, no meningeal sign, No JVD - Cardiac Cardiac: RRR, Strong equal pulses - Respiratory Respiratory: No respiratory distress, Clear bilaterally - Abdomen Abdomen: Soft, Non tender, Non distended - Back Back: No CVA TTP, No spinal TTP - Derm Derm: Warm and dry - Extremities Extremities: No edema - Neuro Neuro: Alert and oriented X 3, 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, No motor deficit, No sensory deficit, Normal speech - Psych Psych: Normal mood, Normal affect Results - Vitals Vitals: Vital Signs - 24 hr 11/11/20 11/11/20 11/11/20 17:15 18:43 20:00 Temperature 36.5 C Heart Rate 65 76 75 Respiratory 16 16 20 Rate Blood Pressure 150/100 H 167/92 H 183/87 H O2 Saturation 96 96 98 11/11/20 20:39 Temperature 36.6 C Heart Rate 75 Respiratory 19 Rate Blood Pressure 183/95 H O2 Saturation 99 Oxygen O2 Source Room air - Labs Labs: Laboratory Tests 11/11/20 11/11/20 17:39 17:39 WBC 6.9 RBC 4.84 Hgb 14.3 Hct 44.7 MCV 92.4 MCH 29.5 MCHC 32.0 RDW 13.2 Plt Count 219 MPV 9.7 Neut # (Auto) 4.9 Lymph # (Auto) 1.1 L Frederick # (Auto) 0.6 Eos # (Auto) 0.2 Baso # (Auto) 0.0 Absolute Nucleated RBC 0.00 Nucleated RBC % 0.0 Sodium 140 Potassium 3.9 Chloride 103 Carbon Dioxide 26 Anion Gap 11.0 BUN 21 H Creatinine 0.9 Estimated GFR (MDRD) 60 L Glucose 103 H Calcium 9.6 Total Bilirubin 0.6 AST 18 ALT 12 Alkaline Phosphatase 60 Total Protein 7.3 Albumin 4.3 Globulin 3.0 Albumin/Globulin Ratio 1.4 Lipase 36 - Rads (name of study) CT angio head Radiology: Prelim report reviewed, EMP read contemporaneously, See rad report CT angio neck Radiology: Prelim report reviewed, See rad report PD MEDICAL DECISION MAKING - ED course Complexity details: reviewed old records, reviewed results, re-evaluated patient, considered differential, d/w patient ED course: Attempted to obtain records from [facility] in [place]. No records were sent. Her CT angiogram of the head and neck reveal Suggestion of high-grade stenosis/occlusion involving the most distal intracranial portion of the right internal carotid artery with nonvisualization of the normal right middle cerebral artery and A1 segment of the right anterior cerebral artery. Decreased contrast opacification of the right cerebral artery branches compared to the left side. Otherwise no acute abnormality. Her headache resolved in the emergency department. She does not have any acute neurological deficits. Unclear what her imaging showed last month in [place]. No new neurological deficits. Recommend she start on a full dose aspirin and follow-up closely with her doctor this week here to be referred to interventional radiology/v ascular surgery for further evaluation. Patient counseled regarding signs and symptoms for which I believe and urgent re-evaluation would be necessary. Patient with good understanding of and agreement to plan and is comfortable going home at this time This document was made in part using voice recognition software. While efforts are made to proofread this document, sound alike and grammatical errors may occur. Departure - Departure Disposition: 01 Home, Self Care Clinical Impression: Head ache Qualifiers: Headache type: unspecified Headache chronicity pattern: unspecified pattern Intractability: not intractable Qualified Code(s): R51.9 - Headache, unspecified Hypertension Qualifiers: Hypertension type: unspecified Qualified Code(s): I10 - Essential (primary) hypertension Internal carotid artery stenosis Qualifiers: Laterality: right Qualified Code(s): I65.21 - Occlusion and stenosis of right carotid artery Condition: Good Instructions: ED Cephalgia Unspecified Follow-Up: Naseem Brooks MD [Primary Care Provider] - [facility] [Provider Group] - Within 3 Days Comments: You need to follow-up with a primary care doctor from [facility] this week. You are an established patient there so they should be able to see you. You need to make sure you are taking a full dose daily aspirin. You need to be referred to a vascular surgeon or an interventional radiologist for evaluation of your internal carotid artery stenosis. We were unable to obtain your records from [facility] l[facility]itha, it is unclear if your CT has changed from your prior or not Discharge Date/Time: 11/11/20 20:39
[2020-11-11 20:40] VITALS: BP 183/95
== END 2020-11-11 20:39 | disposition home or self-care (01) ==
LOC: ED 17:10
DX: I65.21 Occlusion and stenosis of right carotid artery (principal); R51.9 Headache, unspecified; I10 Essential (primary) hypertension; Z87.891 Personal history of nicotine dependence
CPT/HCPCS: 36415; 70496; 70498; 80053; 83690; 85025; 99284; Q9967

== ENCOUNTER 2021-02-05 15:23 | Outpatient (CLI) | payer MEDICARE ==
[2021-02-05 17:56] LABS: BASOPHILS % (AUTO) 0.5 %; EOSINOPHILS # (AUTO) 0.2 10^3/uL (0.0-0.7); EOSINOPHILS % (AUTO) 2.7 %; HCT - HEMATOCRIT 43.2 % (37.0-47.0); HGB - HEMOGLOBIN 13.3 g/dL (12.0-16.0); LYMPHOCYTES # (AUTO) 1.5 10^3/uL (1.5-3.5); MEAN CORPUSCULAR HEMOGLOBIN 28.7 pg (27.0-31.0); MEAN CORPUSCULAR HGB CONC 30.8 g/dL (32.0-36.0); MEAN CORPUSCULAR VOLUME 93.1 fL (81.0-99.0); MONOCYTES # (AUTO) 0.6 10^3/uL (0.0-1.0); MONOCYTES % (AUTO) 8.7 %; NEUTROPHILS # (AUTO) 4.3 10^3/uL (1.5-6.6); NEUTROPHILS % (AUTO) 64.8 %; PLT - PLATELET COUNT 220 10^3/uL (130-450); RED BLOOD COUNT 4.64 10^6/uL (4.20-5.40); RED CELL DISTRIBUTION WIDTH 13.2 % (12.0-15.0); WHITE BLOOD COUNT 6.6 x10^3/uL (4.8-10.8)
[2021-02-05 18:20] LABS: ALBUMIN 4.2 g/dL (3.2-5.5); ALBUMIN/GLOBULIN RATIO 1.4 (1.0-2.2); ALKALINE PHOSPHATASE 55 IU/L (42-121); ALT ALANINE AMINOTRANSFERASE 12 IU/L (10-60); AST ASPARTATE AMINOTRANSFERASE 20 IU/L (10-42); BILIRUBIN,TOTAL 0.6 mg/dL (0.2-1.0); BUN - BLOOD UREA NITROGEN 14 mg/dL (6-20); CALCIUM 9.2 mg/dL (8.5-10.3); CARBON DIOXIDE - CO2 27 mmol/L (21-32); CHLORIDE 101 mmol/L (101-111); CHOL/HDL RATIO 2.5 (<4.4); CHOLESTEROL 138 mg/dL; CREATININE 0.9 mg/dL (0.4-1.0); GFR - MDRD 60 (>89); GLUCOSE 100 mg/dL (70-100); HDL CHOLESTEROL 56 mg/dL; LDL CHOLESTEROL,CALCULATED 61 mg/dL; LDL/HDL RATIO 1.1 (<4.4); POTASSIUM 4.3 mmol/L (3.5-5.0); SODIUM 139 mmol/L (135-145); TOTAL PROTEIN 7.1 g/dL (6.7-8.2); TRIGLYCERIDES 105 mg/dL; VLDL CHOLESTEROL 21 mg/dL
== END 2021-02-05 23:59 | disposition home or self-care (01) ==
LOC: LAB.WCP 15:23
PROVIDERS: ATTEND Family Medicine
DX: E78.5 Hyperlipidemia, unspecified (principal); I10 Essential (primary) hypertension
CPT/HCPCS: 36415; 80053; 80061; 83721; 85025

== ENCOUNTER 2021-12-23 14:08 | Emergency (ER) | payer MEDICARE ==
[2021-12-23 14:27] VITALS: BP 165/84
--- NOTE | 2021-12-23 14:48 | XRAY Report ---
PROCEDURE: Ankle 3 View LT INDICATIONS: Trauma TECHNIQUE: 3 views of the ankle were acquired. COMPARISON: None FINDINGS: Bones: Osseous demineralization. No acute fracture or dislocation. Tibiotalar osteoarthritic changes. Soft tissues: Soft tissue swelling surrounding the ankle. Ossification projecting over the distal Ach illes tendon. Plantar enthesopathy. IMPRESSION: No acute radiographic abnormality identified. Chronic appearing degenerative changes as above. There is soft tissue swelling around the ankle. Reviewed by: Dewayne Esposito MD on 12/23/2021 2:46 PM PDT Approved by: Dewayne Esposito MD on 12/23/2021 2:46 PM PDT Station ID: [id number]
--- NOTE | 2021-12-23 15:16 | Ultrasound Report ---
PROCEDURE: Duplex Ext Veins Left INDICATIONS: pain, swelling to left calf TECHNIQUE: Real-time imaging, as well as color and pulse Doppler interrogation, were performed of the lower extr emity deep veins from the inguinal ligament to the popliteal fossa. COMPARISON: None. FINDINGS: The deep veins are normally compressible, and free of intraluminal thrombus. Color and pu lse Doppler demonstrate normal phasic intraluminal flow. There is normal augmentation response to di stal compression maneuver. IMPRESSION: No sonographic evidence of DVT. Reviewed by: Zhao Bae MD on 12/23/2021 3:15 PM PDT Approved by: Zhao Bae MD on 12/23/2021 3:15 PM PDT Station ID: [id number]
--- NOTE | 2021-12-23 15:18 | ED Physician Documentation ---
PD HPI LOWER EXT INJURY - Stated complaint Stated Complaint: LT FT/ANKLE SWOLLEN/PX - Chief complaint Chief Complaint: Ext Problem - History obtained from History obtained from: Patient, Family - History of Present Illness PD HPI LOW EXT INJURY LOCATION: Left - Additional information Additional information: 86-year-old female presents for 3 weeks of left lower extremity swelling and pain with ambulation. Patient states he had a ground-level fall and was evaluated in the ER at that time. X-ray imaging negative for fractures and patient was discharged with a hartman boot, which her family states that she immediately took off and does not want to wear. Patient has reported swelling in her lower extremity from the ankle down since that time. She states that it feels tight and her primary care doctor referred her to the ER for rule out of DVT. Patient states that it feels like a stretching when she walks. Denies numbness, weakness, tingling. Family bedside states that the patient is not compliant with elevating her extremity and continues to want to walk on her foot all the time Review of Systems Ten Systems: 10 systems reviewed and negative Constitutional: denies: Fever, Chills, Myalgias Eyes: denies: Loss of vision, Decreased vision, Photophobia Ears: denies: Loss of hearing, Ear pain, Drainage/discharge Nose: denies: Rhinorrhea / runny nose, Foreign Body Throat: denies: Dental pain / toothache, Oral lesions / sores, Sore throat Cardiac: denies: Chest pain / pressure, Palpitations Respiratory: denies: Dyspnea, Cough Musculoskeletal: reports: Extremity swelling. 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 - Present Medications Home Medications: Ambulatory Orders Medication Instructions Recorded Confirmed Losartan [Cozaar] 25 mg PO DAILY 02/01/14 11/11/20 Mirabegron [Myrbetriq] 25 mg PO DAILY 12/28/18 11/11/20 Omeprazole 20 mg PO DAILY 12/28/18 11/11/20 - Allergies Allergies/Adverse Reactions: Allergies Allergy/AdvReac Type Severity Reaction Status Date / Time No Known Drug Allergies Allergy Verified 06/21/21 17:14 - Social History Does the pt smoke?: No Smoking Status: Former smoker Does the pt drink ETOH?: Yes Does the pt have substance abuse?: No - Immunizations Immunizations are current?: Yes PD ED PE NORMAL - Vitals Vital signs reviewed: Yes - General General: Alert and oriented X 3, No acute distress, Well developed/nourished - HEENT HEENT: Atraumatic, PERRL, EOMI, Ears normal, Moist mucous membranes, Pharynx benign - Neck Neck: Supple, no meningeal sign, No bony TTP, C-Spine cleared by NEXUS criteria - Cardiac Cardiac: RRR, No murmur, Strong equal pulses - Respiratory Respiratory: No respiratory distress, Clear bilaterally - Abdomen Abdomen: Soft, Non tender, Non distended - Back Back: No CVA TTP, No spinal TTP - Derm Derm: Normal color, Warm and dry, No rash - Extremities Extremities: No deformity, No tenderness to palpate, Normal ROM s pain, Other (1+ nonpitting edema LLE. 2+ DP pulses bilaterally) - Neuro Neuro: Alert and oriented X 3, video engineer 2-12 intact, No motor deficit, No sensory deficit, Normal speech - Psych Psych: Normal mood, Normal affect Results - Vitals Vitals: Vital Signs - 24 hr 12/23/21 14:21 Temperature 36.3 C L Heart Rate 74 Respiratory 18 Rate Blood Pressure 165/84 H O2 Saturation 99 Oxygen O2 Source Room air PD MEDICAL DECISION MAKING - ED course ED course: Left lower extremity swelling after a ground-level fall 3 weeks ago. Neurologically and vascularly intact. Ultrasound and x-ray imaging are negative for acute findings. Patient was placed in an George wrap bandage as well as air cast for support and counseled on rice therapy. Family at bedside state that they would attempt to keep patient compliant with RICE therapy Departure - Departure Disposition: 01 Home, Self Care Clinical Impression: Swelling of lower extremity Condition: Stable Instructions: Ankle Sprain, ED Leg Swelling Unilateral Comments: Try to stay off your affected foot in order to aid in healing. When you are resting prop your foot up. You may also apply ice as needed for the swelling. Please follow-up with your primary care physician if you continue to experience swelling. At this time you do not have a DVT or evidence of a fracture on your x-ray. Discharge Date/Time: 12/23/21 15:52
== END 2021-12-23 15:52 | disposition home or self-care (01) ==
LOC: ED 14:08
DX: M79.605 Pain in left leg (principal); R22.43 Localized swelling, mass and lump, lower limb, bilateral; Z87.891 Personal history of nicotine dependence; I10 Essential (primary) hypertension
CPT/HCPCS: 99282; 99284

== ENCOUNTER 2022-02-20 09:39 | Outpatient (CLI) | payer MEDICARE | END 2022-02-20 09:40 | disposition critical access hospital (66) | LOC: EMS 09:39 | DX: R29.810 Facial weakness (principal); R53.1 Weakness; R47.81 Slurred speech | CPT/HCPCS: A0425; A0429 ==

== ENCOUNTER 2022-02-20 10:05 | Emergency (ER) | payer MEDICARE ==
[2022-02-20 10:33] LABS: BASOPHILS # (AUTO) 0.1 10^3/uL (0.0-0.1); BASOPHILS % (AUTO) 0.7 %; EOSINOPHILS # (AUTO) 0.1 10^3/uL (0.0-0.7); EOSINOPHILS % (AUTO) 1.2 %; HCT - HEMATOCRIT 42.4 % (37.0-47.0); HGB - HEMOGLOBIN 13.7 g/dL (12.0-16.0); LYMPHOCYTES # (AUTO) 0.7 10^3/uL (1.5-3.5); LYMPHOCYTES % (AUTO) 9.7 %; MEAN CORPUSCULAR HEMOGLOBIN 30.2 pg (27.0-31.0); MEAN CORPUSCULAR HGB CONC 32.3 g/dL (32.0-36.0); MEAN CORPUSCULAR VOLUME 93.4 fL (81.0-99.0); MONOCYTES # (AUTO) 0.5 10^3/uL (0.0-1.0); MONOCYTES % (AUTO) 7.2 %; NEUTROPHILS # (AUTO) 5.9 10^3/uL (1.5-6.6); NEUTROPHILS % (AUTO) 80.9 %; PLT - PLATELET COUNT 170 10^3/uL (130-450); RED BLOOD COUNT 4.54 10^6/uL (4.20-5.40); RED CELL DISTRIBUTION WIDTH 13.2 % (12.0-15.0); WHITE BLOOD COUNT 7.3 x10^3/uL (4.8-10.8)
[2022-02-20] MEDS ORDERED: TENECTEPLASE 50 MG/10 ML VIAL IVP STA (10:38)
--- NOTE | 2022-02-20 10:39 | CT Report ---
PROCEDURE: Head W/O Stroke Protocol INDICATIONS: R sided weakness 0845 TECHNIQUE: Noncontrast 4.5 mm thick angled axial sections acquired from the foramen magnum to the vertex, with c oronal reformats. For radiation dose reduction, the following was used: automated exposure control, adjustment of mA and/or kV according to patient size. COMPARISON: 11/11/2020. FINDINGS: Image quality: Excellent. CSF spaces: Basal cisterns are patent. No extra-axial fluid collections. Ventricles are normal in size and shape. Brain: No midline shift. No intracranial masses or hemorrhage. Palmer-white matter interface is norm al. Ill-defined periventricular and deep white matter hypodensities, nonspecific, possibly sequela o f microvascular ischemic change. Diffuse symmetric prominence of ventricles and sulci likely related to cerebral volume loss. Skull and face: Calvarium and visualized facial bones are intact, without suspicious lesions. Sinuses: Visualized sinuses and mastoids are clear. IMPRESSION: No intracranial hemorrhage or other acute intracranial abnormality. Results discussed with Dr. Chester by Dr. Paulson at 1036 hours on 02/20/2022. This study fulfills neurological imaging criteria for inclusion or exclusion of acute stroke therapie s based on available published neurological imaging guidelines. Reviewed by: Jacky Paulson MD on 02/20/2022 10:38 AM PDT Approved by: Jacky Paulson MD on 02/20/2022 10:38 AM PDT Station ID: [id number]
--- NOTE | 2022-02-20 10:40 | ED Physician Documentation ---
PD HPI FOCAL NEURO - Stated complaint Stated Complaint: CODE STROKE - Chief complaint Chief Complaint: Neuro - History obtained from History obtained from: Patient, Family (Son), EMS - Additional information Additional information: Patient is an 86-year-old female presenting for evaluation of difficulty with speech and right-sided weakness that started at 845 this morning. Prior to that she was up walking around the home and getting ready for the day. Her son noticed that 845 she was having trouble talking and also having trouble with movements of the right side of her body which she noticed when she was trying to wipe her nose and was unable to use a Kleenex. He called EMS. EMS also noticed right-sided facial weakness and right arm and leg weakness along with abnormal speech. Her blood sugar was normal and her blood pressures were also okay for them. She does not have a history of previous strokes but may have a history of TIAs. She does not currently take a blood thinner. She has not recently been ill.History is limited as patient is having trouble with her speech. Review of Systems Constitutional: denies: Fever Cardiac: denies: Chest pain / pressure Respiratory: denies: Dyspnea GI: denies: Abdominal Pain, Vomiting : denies: Dysuria Musculoskeletal: denies: Neck pain Neurologic: reports: Focal weakness, Difficulty speaking, Other (Difficulty swallowing). 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 - Present Medications Home Medications: Ambulatory Orders Medication Instructions Recorded Confirmed Losartan [Cozaar] 25 mg PO DAILY 02/01/14 11/11/20 Mirabegron [Myrbetriq] 25 mg PO DAILY 12/28/18 11/11/20 Omeprazole 20 mg PO DAILY 12/28/18 11/11/20 - Allergies Allergies/Adverse Reactions: Allergies Allergy/AdvReac Type Severity Reaction Status Date / Time No Known Drug Allergies Allergy Verified 11/11/20 17:14 - Social History Does the pt smoke?: No Smoking Status: Former smoker Does the pt drink ETOH?: Yes Does the pt have substance abuse?: No - Immunizations Immunizations are current?: Yes PD ED PE NORMAL - General General: Alert and oriented X 3, No acute distress, Well developed/nourished - HEENT HEENT: Atraumatic, PERRL, EOMI, Other (Right-sided facial weakness; ) - Neck Neck: Supple, no meningeal sign, No bony TTP - Cardiac Cardiac: RRR, No murmur, Strong equal pulses - Respiratory Respiratory: Clear bilaterally - Abdomen Abdomen: Non tender, Non distended - Derm Derm: Warm and dry - Extremities Extremities: No calf tenderness / cord - Neuro Neuro: Alert and oriented X 3, Other (Abnormal speech, difficulty with clearing secretions, right-sided facial weakness, right leg weakness greater than right arm weakness). 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, No motor deficit, Normal speech NIHSS - Level of Consciousness Level of consciousness: (0) Alert, Keenly responsive LOC Questions: (0) Answers both Q's correct LOC Commands: (0) Performs both correctly - Gaze Best Gaze: (0) Normal - Visual Visual: (0) No loss - Facial Palsy Facial Palsy: (1) Minor paralysis - Motor Arms (both separate) Motor Arm (right): (1) Drift Motor Arm (left): (0) No drift - Motor Legs (both separate) Motor Leg (right): (2) Some effort against gravity Motor Leg (left): (0) No drift - Limb Ataxia Limb Ataxia: (0) Absent - Sensory Sensory: (0) Normal - Best Language Best Language: (0) No aphasia - Dysarthria Dysarthria: (2) Severe dysarthria - Extinction and Inattention (formally neg Extinction and inattention: (0) No abnormality - Total Score/Results Total Score/Result: 6 Results - Vitals Vitals: Vital Signs - 24 hr 02/20/22 02/20/22 02/20/22 10:08 10:23 11:12 Temperature 36.1 C L Heart Rate 73 74 74 Respiratory 17 18 16 Rate Blood Pressure 163/57 H 186/81 H 171/87 H O2 Saturation 98 100 94 02/20/22 02/20/22 02/20/22 11:16 11:25 11:33 Temperature 36.2 C L Heart Rate 74 72 Respiratory 20 26 H 23 Rate Blood Pressure 178/96 H 188/81 H 156/77 H O2 Saturation 96 93 95 02/20/22 02/20/22 02/20/22 11:43 11:51 12:00 Temperature Heart Rate 68 69 67 Respiratory 18 21 20 Rate Blood Pressure 166/85 H 166/88 H 148/79 H O2 Saturation 93 95 93 02/20/22 02/20/22 12:30 14:00 Temperature Heart Rate 63 73 Respiratory 19 18 Rate Blood Pressure 140/86 H 162/77 H O2 Saturation 94 95 Oxygen O2 Source Room air - EKG (time done) 1042 Rate: Rate (enter#) (75) Rhythm: NSR Intervals: No: Prolonged QT (QTC 387) Ischemia: No: ST elevation c/w ischemia - Labs Labs: Laboratory Tests 02/20/22 02/20/22 02/20/22 10:25 10:25 10:25 WBC 7.3 RBC 4.54 Hgb 13.7 Hct 42.4 MCV 93.4 MCH 30.2 MCHC 32.3 RDW 13.2 Plt Count 170 MPV 10.0 Neut # (Auto) 5.9 Lymph # (Auto) 0.7 L [place] # (Auto) 0.5 Eos # (Auto) 0.1 Baso # (Auto) 0.1 Absolute Nucleated RBC 0.00 Nucleated RBC % 0.0 PT 12.0 INR 1.1 Sodium 139 Potassium 4.2 Chloride 104 Carbon Dioxide 27 Anion Gap 8.0 BUN 15 Creatinine 0.9 Estimated GFR (MDRD) 60 L Glucose 131 H Calcium 8.9 Total Bilirubin 0.8 AST 15 ALT < 10 L Alkaline Phosphatase 63 Total Protein 6.4 L Albumin 3.6 Globulin 2.8 Albumin/Globulin Ratio 1.3 Lipase 30 SARS-CoV-2 (PCR) 02/20/22 10:53 WBC RBC Hgb Hct MCV MCH MCHC RDW Plt Count MPV Neut # (Auto) Lymph # (Auto) [place] # (Auto) Eos # (Auto) Baso # (Auto) Absolute Nucleated RBC Nucleated RBC % PT INR Sodium Potassium Chloride Carbon Dioxide Anion Gap BUN Creatinine Estimated GFR (MDRD) Glucose Calcium Total Bilirubin AST ALT Alkaline Phosphatase Total Protein Albumin Globulin Albumin/Globulin Ratio Lipase SARS-CoV-2 (PCR) NOT DETECTED PD MEDICAL DECISION MAKING - ED course Complexity details: reviewed results, re-evaluated patient, d/w patient, d/w family ED course: Patient brought in for evaluation of right-sided weakness. I evaluated her at triage and noted to continue deficits. Patient was taken immediately to the CT scanner Per code stroke protocol. A telemetry neurology was also consulted. Dr. Rodriguez Evaluated the patient via Video monitor and agreed with assessment that patient was having an acute stroke. Patient did present within window for tPA and did not have any contraindications. Her blood pressure was slightly elevated and did require treatments to lower her blood pressure prior to tPA initiation. Patient had consented to tPA as did her son who I spoke with over the phone. Patient and son are aware of need for transfer as patient has received tPA and needs further monitoring. 1225 - D/w Dr. Gomez Gaines (Neurology, [facility]) Who accepts the patient for transfer. There is no current bed but neuro ICU is working on it. - Critical Care Time(min): 32 Time Includes: Direct patient care, Reassess patient, Document care, Coordinate care Procedures excluded from critical care time: EKG Departure - Departure Disposition: 02 Transfer Acute Care Hosp Clinical Impression: Acute CVA (cerebrovascular accident), Hypertensive emergency Condition: Critical Discharge Date/Time: 02/20/22 14:15
[2022-02-20 10:45] LABS: INR 1.1 (0.8-1.2)
[2022-02-20 10:46] LABS: ALBUMIN 3.6 g/dL (3.2-5.5); ALBUMIN/GLOBULIN RATIO 1.3 (1.0-2.2); ALKALINE PHOSPHATASE 63 IU/L (42-121); ALT ALANINE AMINOTRANSFERASE < 10 IU/L (10-60); AST ASPARTATE AMINOTRANSFERASE 15 IU/L (10-42); BILIRUBIN,TOTAL 0.8 mg/dL (0.2-1.0); BUN - BLOOD UREA NITROGEN 15 mg/dL (6-20); CALCIUM 8.9 mg/dL (8.5-10.3); CARBON DIOXIDE - CO2 27 mmol/L (21-32); CHLORIDE 104 mmol/L (101-111); CREATININE 0.9 mg/dL (0.4-1.0); GFR - MDRD 60 (>89); GLUCOSE 131 mg/dL (70-100); LIPASE 30 U/L (22-51); POTASSIUM 4.2 mmol/L (3.5-5.0); SODIUM 139 mmol/L (135-145); TOTAL PROTEIN 6.4 g/dL (6.7-8.2)
[2022-02-20] MEDS ORDERED: LABETALOL 20 MG/4 ML SYRINGE IVP STA ×2 (10:57→11:25)
[2022-02-20] MEDS ORDERED: WATER FOR INJECTION STERILE IV ONE (11:00)
[2022-02-20] MEDS ORDERED: ALTEPLASE 100 MG VIAL IVP ONE (11:00)
[2022-02-20] MEDS ORDERED: ALTEPLASE IV ONE (11:00)
--- NOTE | 2022-02-20 11:05 | CT Report ---
PROCEDURE: CT angiogram of the brain with contrast INDICATIONS: R sided weakness 0845 CONTRAST: IV CONTRAST: Optiray 320 ml: 80 PO CONTRAST: *NO PO CONTRAST TECHNIQUE: Precontrast 4.5 mm thick angled axial sections acquired from the foramen magnum to the vertex. Afte r the administration of intravenous contrast, 1 mm thick sections acquired through the [place] of [place] is. Postcontrast 4.5 mm thick sections then re-acquired from the foramen magnum to the vertex. For radiation dose reduction, the following was used: automated exposure control, adjustment of mA and/o r kV according to patient size. COMPARISON: 11/11/2020 FINDINGS: Image quality: Excellent. Anterior circulation: Diffuse atherosclerotic vascular calcification noted in the cavernous portions of both internal carotid arteries. There is occlusion of the right distal ICA as well as the proximal right M1 MCA. The right distal MCA vessels are perfused through collaterals, similar to the prior ex am. Additionally, the right A2 WOO is perfused through a patent anterior communicating artery. 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 The left MCA is widely patent at least proximally. Posterior circulation: Atherosclerotic plaque is associated with severe epidural right vertebral katrin ry stenosis. The vertebral artery is patent however bilaterally. Basilar artery unremarkable. Severe stenosis of the left perimesencephalic HEALTH NAVIGATOR is noted with distal patency. The right P1 HEALTH NAVIGATOR is occluded , new from the prior. IMPRESSION: 1. Acute right proximal HEALTH NAVIGATOR occlusion, new from the prior exam. 2. Distal right ICA, M1 MCA occlusion is stable from the prior exam. Distal right MCA vessels are dim inutive but patent. Left MCA appears patent. 3. Severe left P1 HEALTH NAVIGATOR stenosis and right intradural vertebral artery severe stenosis without occlusio n. 4. 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 Chester at 10:00 AM AK time on 02/20/2022 Reviewed by: Oleg Montana MD on 02/20/2022 10:04 AM AKDT Approved by: Oleg Montana MD on 02/20/2022 10:04 AM AKDT Station ID: [id number]
--- NOTE | 2022-02-20 11:17 | CT Report ---
PROCEDURE: CT angiogram neck with contrast INDICATIONS: R sided weakness 0845 CONTRAST: IV CONTRAST: Optiray 320 ml: 80 PO CONTRAST: *NO PO CONTRAST TECHNIQUE: After the administration of intravenous contrast, 1.5 mm axial sections acquired from the aortic arch to the [place] of [place]. Coronal 3-D maximum intensity projection (MIP) and/or volume rendering ref ormats were then performed. For radiation dose reduction, the following was used: automated exposur e control, adjustment of mA and/or kV according to patient size. COMPARISON: 11/11/2020 FINDINGS: Image quality: Excellent. Carotid system: The great vessels demonstrate a conventional anatomy as they arise from the aortic a rch. The origins of the common carotid arteries appear patent. The common carotid arteries demonstr ate normal calibers and courses. Dense sclerotic plaque in both proximal internal carotid arteries re sults in 50-60% stenosis bilaterally. Posterior circulation: The origins of the vertebral arteries appear patent. The more superior porti ons of the vertebral arteries demonstrate normal course and caliber. They join to form a normal appe aring basilar artery. Soft tissues: Visualized neck soft tissues demonstrate no suspicious abnormalities. The thyroid is normal in size and there are no incidental findings. Bones: No suspicious bony lesions. Visualized cervical spine appears normally aligned. IMPRESSION: 1. Approximately 50-60% stenosis noted in both proximal ICA, greater on the right, have increased fro m the prior exam The estimate of stenosis included in the report of the imaging study was calculated using the NASCET method Reviewed by: Oleg Montana MD on 02/20/2022 10:15 AM SHIRA Approved by: Oleg Montana MD on 02/20/2022 10:15 AM SHIRA Station ID: [id number]
[2022-02-20] MEDS ORDERED: NICARDIPINE HCL 25 MG in SODIUM CHLORIDE 0.9% 240 ML IV STA (11:25)
[2022-02-20 14:47] VITALS: BP 162/77
== END 2022-02-20 14:15 | disposition short-term general hospital (02) ==
LOC: EDUNIT# → ED 10:05
DX: I63.9 Cerebral infarction, unspecified (principal); R47.1 Dysarthria and anarthria; R29.810 Facial weakness; G81.91 Hemiplegia, unspecified affecting right dominant side; I16.1 Hypertensive emergency; R29.706 NIHSS score 6; Z87.891 Personal history of nicotine dependence; Z20.822 Contact with and (suspected) exposure to COVID-19
CPT/HCPCS: 36415; 37195; 70450; 70496; 70498; 80053; 83690; 85025; 85610; 87635; 93005; 96374; 96375; 99291; J2997; Q9967

== ENCOUNTER 2023-01-02 10:42 | Outpatient (CLI) | payer MEDICARE | END 2023-01-02 10:43 | disposition critical access hospital (66) | LOC: EMS 10:42 | DX: R53.81 Other malaise (principal); R53.1 Weakness; R05.9 Cough, unspecified; R50.9 Fever, unspecified | CPT/HCPCS: A0425; A0429 ==

== ENCOUNTER 2023-01-02 11:16 | Emergency (ER) | payer MEDICARE ==
--- NOTE | 2023-01-02 11:50 | XRAY Report ---
PROCEDURE: Chest 1 View X-Ray INDICATIONS: cough TECHNIQUE: One view of the chest was acquired. COMPARISON: None. FINDINGS: Surgical changes and devices: None. Lungs and pleura: No pleural effusions or pneumothorax. Lungs are clear. Mediastinum: Mediastinal contours appear normal. Heart size is normal. Bones and chest wall: No suspicious bony lesions. Overlying soft tissues appear unremarkable. IMPRESSION: No acute cardiopulmonary process. Reviewed by: Yg Bae MD on 01/02/2023 10:48 AM SHIRA Approved by: Yg aBe MD on 01/02/2023 10:48 AM PRMONI Station ID: [id number]
[2023-01-02 12:13] LABS: BASOPHILS % (AUTO) 0.8 %; HCT - HEMATOCRIT 42.5 % (37.0-47.0); LYMPHOCYTES # (AUTO) 0.8 10^3/uL (1.5-3.5); LYMPHOCYTES % (AUTO) 14.8 %; MEAN CORPUSCULAR HGB CONC 32.9 g/dL (32.0-36.0); MEAN CORPUSCULAR VOLUME 91.2 fL (81.0-99.0); MEAN PLATELET VOLUME 10.4 fL (7.9-10.8); MONOCYTES # (AUTO) 1.1 10^3/uL (0.0-1.0); MONOCYTES % (AUTO) 20.1 %; NEUTROPHILS # (AUTO) 3.4 10^3/uL (1.5-6.6); NEUTROPHILS % (AUTO) 63.9 %; PLT - PLATELET COUNT 186 10^3/uL (130-450); RED BLOOD COUNT 4.66 10^6/uL (4.20-5.40); RED CELL DISTRIBUTION WIDTH 13.2 % (12.0-15.0); WHITE BLOOD COUNT 5.3 x10^3/uL (4.8-10.8)
[2023-01-02] MEDS ORDERED: SODIUM CHLORIDE 0.9% 1,000 ML IV STA (12:15)
--- NOTE | 2023-01-02 12:18 | ED Physician Documentation ---
History of Present Illness - Stated complaint Stated Complaint: COUGH,WEAKNESS - Chief complaint Chief Complaint: Resp - History obtained from History obtained from: Patient - Additonal information Additional information: 87-year-old woman with history of stroke, hypertension. She has had some pain on the right side for the last week and a half or so. It is in the right mid back and laterally. Nothing makes it better or worse. No change with eating. Does not seem movement related. Her daughter traveled from [place] few days ago and was sick and then everybody else in the family got sick with cough and cold. She got sick yesterday with a cough productive of clear sputum, mild body aches, chills but no fevers, and generalized weakness. She denies runny nose or sore throat. Nobody in the family has done a COVID test. 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 - Present Medications Home Medications: Ambulatory Orders Medication Instructions Recorded Confirmed Losartan [Cozaar] 25 mg PO DAILY 02/01/14 11/11/20 Mirabegron [Myrbetriq] 25 mg PO DAILY 12/28/18 11/11/20 Omeprazole 20 mg PO DAILY 12/28/18 11/11/20 Amox/Clav 875/125 [Augmentin] 1 each PO Q12H #10 tablet 01/02/23 - Allergies Allergies/Adverse Reactions: Allergies Allergy/AdvReac Type Severity Reaction Status Date / Time No Known Drug Allergies Allergy Verified 01/02/23 11:30 - Social History Does the pt smoke?: No Smoking Status: Former smoker Does the pt drink ETOH?: Yes Does the pt have substance abuse?: No - Immunizations Immunizations are current?: Yes PD ED PE NORMAL - Vitals Vital signs reviewed: Yes - General General: Alert and oriented X 3, No acute distress, Well developed/nourished - HEENT HEENT: PERRL, EOMI - Neck Neck: Supple, no meningeal sign, No bony TTP - Cardiac Cardiac: RRR, No murmur - Respiratory Respiratory: No respiratory distress, Clear bilaterally - Abdomen Abdomen: Normal bowel sounds, Soft, Other (She has a CBD patch in the right posterior axillary line around rib 10 which she says is where the her pain is. She has very mild right upper quadrant tenderness although she says that is not where it hurts when I press.) - Back Back: No CVA TTP, No spinal TTP - Derm Derm: No rash - Extremities Extremities: No edema, No calf tenderness / cord - Neuro Neuro: Alert and oriented X 3, Normal speech Eye Opening: Spontaneous Motor: Obeys Commands Verbal: Oriented GCS Score: 15 Results - Vitals Vitals: Vital Signs - 24 hr 01/02/23 01/02/23 01/02/23 11:24 11:37 14:25 Temperature 37.0 C Heart Rate 82 85 86 Respiratory 20 19 17 Rate Blood Pressure 136/112 H 176/90 H 183/117 H O2 Saturation 99 96 100 01/02/23 01/02/23 17:00 20:20 Temperature Heart Rate 89 81 Respiratory 16 16 Rate Blood Pressure 186/115 H O2 Saturation 96 95 Oxygen O2 Source Room air - Labs Labs: Laboratory Tests 01/02/23 01/02/23 01/02/23 11:41 12:00 12:00 WBC 5.3 RBC 4.66 Hgb 14.0 Hct 42.5 MCV 91.2 MCH 30.0 MCHC 32.9 RDW 13.2 Plt Count 186 MPV 10.4 Neut # (Auto) 3.4 Lymph # (Auto) 0.8 L [place] # (Auto) 1.1 H Eos # (Auto) 0.0 Baso # (Auto) 0.0 Absolute Nucleated RBC 0.00 Nucleated RBC % 0.0 Sodium 137 Potassium 3.6 Chloride 103 Carbon Dioxide 27 Anion Gap 7.0 BUN 13 Creatinine 0.8 Estimated GFR (MDRD) 68 L Glucose 100 Lactic Acid Calcium 9.3 Total Bilirubin 0.5 AST 16 ALT 10 Alkaline Phosphatase 75 Total Protein 7.2 Albumin 4.2 Globulin 3.0 Albumin/Globulin Ratio 1.4 Urine Color Urine Clarity Urine pH Ur Specific [place] Urine Protein Urine Glucose (UA) Urine Ketones Urine Occult Blood Urine Nitrite Urine Bilirubin Urine Urobilinogen Ur Leukocyte Esterase Urine RBC Urine WBC Ur Squamous Epith Cells Urine Bacteria Ur Microscopic Review Urine Culture Comments Nasal Adenovirus (PCR) NOT DETECTED Nasal B. parapertussis DNA (PCR) NOT DETECTED Nasal Coronavir 229E PCR NOT DETECTED Nasal Coronavir HKU1 PCR NOT DETECTED Nasal Coronavir NL63 PCR NOT DETECTED Nasal Coronavir OC43 PCR NOT DETECTED Nasal Enterovir/Rhinovir PCR NOT DETECTED Nasal Influenza B PCR NOT DETECTED Nasal Influenza A PCR NOT DETECTED Nasal Parainfluen 1 PCR NOT DETECTED Nasal Parainfluen 2 PCR NOT DETECTED Nasal Parainfluen 3 PCR NOT DETECTED Nasal Parainfluen 4 PCR NOT DETECTED Nasal RSV (PCR) NOT DETECTED Nasal B.pertussis DNA PCR NOT DETECTED Nasal C.pneumoniae (PCR) NOT DETECTED [place] Human Metapneumo PCR NOT DETECTED Nasal M.pneumoniae (PCR) NOT DETECTED Nasal SARS-CoV-2 (PCR) DETECTED A 01/02/23 01/02/23 14:02 15:45 WBC RBC Hgb Hct MCV MCH MCHC RDW Plt Count MPV Neut # (Auto) Lymph # (Auto) [place] # (Auto) Eos # (Auto) Baso # (Auto) Absolute Nucleated RBC Nucleated RBC % Sodium Potassium Chloride Carbon Dioxide Anion Gap BUN Creatinine Estimated GFR (MDRD) Glucose Lactic Acid 0.9 Calcium Total Bilirubin AST ALT Alkaline Phosphatase Total Protein Albumin Globulin Albumin/Globulin Ratio Urine Color YELLOW Urine Clarity CLEAR Urine pH 6.5 Ur Specific [place] <=1.005 Urine Protein NEGATIVE Urine Glucose (UA) NEGATIVE Urine Ketones NEGATIVE Urine Occult Blood NEGATIVE Urine Nitrite NEGATIVE Urine Bilirubin NEGATIVE Urine Urobilinogen 0.2 (NORMAL) Ur Leukocyte Esterase SMALL H Urine RBC 0-5 Urine WBC 4-5 Ur Squamous Epith Cells NONE SEEN Urine Bacteria Few Ur Microscopic Review INDICATED Urine Culture Comments INDICATED Nasal Adenovirus (PCR) Nasal B. parapertussis DNA (PCR) Nasal Coronavir 229E PCR Nasal Coronavir HKU1 PCR Nasal Coronavir NL63 PCR Nasal Coronavir OC43 PCR Nasal Enterovir/Rhinovir PCR Nasal Influenza B PCR Nasal Influenza A PCR Nasal Parainfluen 1 PCR Nasal Parainfluen 2 PCR Nasal Parainfluen 3 PCR Nasal Parainfluen 4 PCR Nasal RSV (PCR) Nasal B.pertussis DNA PCR Nasal C.pneumoniae (PCR) Arnoldo Human Metapneumo PCR Nasal M.pneumoniae (PCR) Nasal SARS-CoV-2 (PCR) - Rads (name of study) Single view chest x-ray is unremarkable Relevant Findings:: Final report received, EMP independent interpretation of test CT abdomen and pelvis demonstrating hydropic gallbladder, possible pancreatic head mass, bladder wall thickening Relevant Findings:: Final report received, EMP independent interpretation of test PD Medical Decision Making - ED course ED course: 87-year-old woman presents with viral syndrome and is found to be COVID- positive. She got sick last night. Her renal function is good. We went over her meds which she does not know exactly, but she knew most of them. Sounds like the only 1 that would need to be stopped paxlovid would be her statin. She also has a right-sided pain which is more long-lasting and I do not think related to the COVID since its been going on for a week and a half and the other symptoms are started last night. With her permission I did call her son by phone and let him know the current diagnosis. Sounds at the whole family has been sick and they likely will have COVID as well. We discussed the indications for paxlovid but it sounds like everybody else has been sick for more than 5 days per his description. Given the findings on the CAT scan and ultrasound was ordered, but I was informed that we do not have ultrasound available this weekend. As such I discussed her case by phone with our on-call surgeon, Dr. Barnard. Who admits that even if the ultrasound was consistent with mild cholecystitis probably would not be a surgical candidate until the COVID clears and she has had a chance to cool down given the lack of abnormal labs consistent with cholecystitis. Patient was unable to give a urine sample here but Dr. Barnard recommended a few days worth of antibiotics for the other issue as well. She was able to walk here with a walker. She was incontinent of urine but the son admits that is a chronic problem. We discussed the other diagnostic findings needing follow-up. Son said he would come pick her up. This was around 2 PM roughly. A couple of hours later we started to get worried that he had not arrived. Multiple phone calls to her son at that point went unanswered and voicemails were left. The nurse decided to call I calm since her son also apparently had COVID to do a wellness check we never heard back. At this point we are worried that her son got weight late on the way here, is ill, or may have just dumped her. I will put in holding orders and a social work consult for APS as well. Departure - Departure Disposition: 01 Home, Self Care Clinical Impression: COVID-19, Mass of head of pancreas Condition: Good Record reviewed to determine appropriate education?: Yes Instructions: ED Viral Syndrome Follow-Up: Surgical Care [Provider Group] Prescriptions: Amox/Clav 875/125 [Augmentin] 1 each PO Q12H #10 tablet Comments: She needs to stop cholesterol medicine (ends in "statin") while on paxlovid (antiviral medicine). She does have a mass in her pancreas or a cyst. At some point in the not too near future she will need an MRI of her pancreas. This can be set up with her primary care physician after the COVID clears. Also there is a suggestion of some chronic inflammation of the gallbladder. I discussed her case with her surgeon he recommends some antibiotics and following up in the office, also after the COVID clears. Return if worse or if she becomes low on oxygen, below 88 to 90%.
[2023-01-02 12:28] LABS: ALBUMIN 4.2 g/dL (3.2-5.5); ALBUMIN/GLOBULIN RATIO 1.4 (1.0-2.2); BILIRUBIN,TOTAL 0.5 mg/dL (0.2-1.0); CALCIUM 9.3 mg/dL (8.5-10.3); CREATININE 0.8 mg/dL (0.6-1.3); POTASSIUM 3.6 mmol/L (3.5-4.5); TOTAL PROTEIN 7.2 g/dL (6.4-8.9)
[2023-01-02 12:50] LABS: B. PARAPERTUSSIS- RESP PCR PAN NOT DETECTED; B. PERTUSSIS- RESP PCR PANEL NOT DETECTED; C. PNEUMONIAE- RESP PCR PANEL NOT DETECTED; CORONAVIRUS 229E-RESP PCR NOT DETECTED; CORONAVIRUS HKU1-RESP PCR NOT DETECTED; CORONAVIRUS NL63-RESP PCR NOT DETECTED; CORONAVIRUS OC43-RESP PCR NOT DETECTED; HUMAN METAPNEUMOVIRUS NOT DETECTED; INFLUENZA A- RESP PCR PANEL NOT DETECTED; INFLUENZA B - RESP PCR PANEL NOT DETECTED; M. PNEUMONIAE- RESP PCR PANEL NOT DETECTED; PARAINFLUENZA VIRUS 1 NOT DETECTED; PARAINFLUENZA VIRUS 2 NOT DETECTED; PARAINFLUENZA VIRUS 3 NOT DETECTED; PARAINFLUENZA VIRUS 4 NOT DETECTED; RHINOVIRUS/ENTEROVIRUS NOT DETECTED; RSV- RESP PCR PANEL NOT DETECTED
[2023-01-02 12:52] LABS: SARS-CoV-2 -RESP PCR PANEL DETECTED
[2023-01-02] MEDS ORDERED: NIRMATRELVIR/RITONAVIR PREPACK PO STA (13:13)
[2023-01-02] MEDS ORDERED: iohexoL-300 100 ML VIAL IVP ONE (13:44)
--- NOTE | 2023-01-02 14:03 | CT Report ---
PROCEDURE: ABDOMEN/PELVIS W INDICATIONS: RUQ/flank pain CONTRAST: 100 mL Omnipaque 300 IV contrast TECHNIQUE: After the administration of IV contrast, 5 mm thick sections acquired from the diaphragms to the symp hysis. 5 mm thick coronal and sagittal reformats were acquired. For radiation dose reduction, the f ollowing was used: automated exposure control, adjustment of mA and/or kV according to patient size. COMPARISON: None FINDINGS: Image quality: Excellent. Lung bases and heart: Unremarkable. Liver: No solid mass. Gallbladder and biliary tree: Hydropic appearing gallbladder with regions of questionable gallbladder wall thickening versus stones. Spleen: No splenomegaly. Pancreas: No pancreatic ductal dilation. Hypodensities of the pancreatic head may reflect cystic valentin ges versus small mass. Adrenals: No adrenal nodule. Kidneys and ureters: No hydronephrosis. No renal cystic lesion which requires follow up. No solid mas s. Bowel and peritoneum: No bowel distension. No pathologic free fluid. Extensive diverticula. Lymph nodes: No central or retroperitoneal adenopathy. Vessels: No infrarenal aortic aneurysm. PELVIS Reproductive organs: Unremarkable. Bladder: Diffuse bladder wall thickening. Pelvic lymph nodes: No pelvic adenopathy by size criteria. Bones: No aggressive osseous abnormality. Other: No significant ventral or inguinal hernia. IMPRESSION: Hydropic appearing gallbladder with questionable focal wall thickening. Consider ultrasound evaluatio n. Irregularity to the pancreatic head concerning for cyst versus small mass. Recommend nonemergent MRI. Bladder wall thickening. Correlate with urinalysis. Extensive diverticular disease without evidence of acute diverticulitis. Reviewed by: Yg Bae MD on 01/02/2023 1:02 PM SHIRA Approved by: Yg Bae MD on 01/02/2023 1:02 PM SHIRA Station ID: [id number]
[2023-01-02] MEDS ORDERED: AMOX/CLAV 875 MG/125 MG TABLET PO STA (15:24)
[2023-01-02 15:52] LABS: BILIRUBIN,URINE NEGATIVE (NEGATIVE); CLARITY,URINE CLEAR (CLEAR); GLUCOSE, URINE (UA) NEGATIVE (NEGATIVE); KETONES,URINE (UA) NEGATIVE (NEGATIVE); LEUKOCYTE ESTERASE, URINE SMALL (NEGATIVE); NITRITE,URINE NEGATIVE (NEGATIVE); OCCULT BLOOD,URINE NEGATIVE (NEGATIVE); PH,URINE 6.5 PH (5.0-7.5); PROTEIN,URINE NEGATIVE (NEGATIVE); UROBILINOGEN,URINE 0.2 (NORMAL) E.U./dL (NORMAL)
[2023-01-02 16:00] LABS: BACTERIA,URINE Few /HPF (None Seen); RBC,URINE 0-5 /HPF (0-5); SQUAMOUS EPITHELIAL CELL,UR NONE SEEN (<= Few)
[2023-01-02] MEDS ORDERED: ONDANSETRON 4 MG/2 ML VIAL IVP PRN (20:22)
[2023-01-02] MEDS ORDERED: ACETAMINOPHEN 500 MG TABLET PO PRN (20:22)
[2023-01-02] MEDS: AMOX/CLAV 875 MG/125 MG TABLET PO SCH (21:05)
[2023-01-03 05:19] LABS: BASOPHILS % (AUTO) 0.7 %; EOSINOPHILS % (AUTO) 0.4 %; HCT - HEMATOCRIT 44.6 % (37.0-47.0); HGB - HEMOGLOBIN 14.6 g/dL (12.0-16.0); LYMPHOCYTES # (AUTO) 0.7 10^3/uL (1.5-3.5); LYMPHOCYTES % (AUTO) 15.7 %; MEAN CORPUSCULAR HEMOGLOBIN 29.9 pg (27.0-31.0); MEAN CORPUSCULAR HGB CONC 32.7 g/dL (32.0-36.0); MEAN CORPUSCULAR VOLUME 91.4 fL (81.0-99.0); MEAN PLATELET VOLUME 10.2 fL (7.9-10.8); MONOCYTES # (AUTO) 0.9 10^3/uL (0.0-1.0); MONOCYTES % (AUTO) 18.8 %; NEUTROPHILS # (AUTO) 2.9 10^3/uL (1.5-6.6); NEUTROPHILS % (AUTO) 64.2 %; PLT - PLATELET COUNT 166 10^3/uL (130-450); RED BLOOD COUNT 4.88 10^6/uL (4.20-5.40); RED CELL DISTRIBUTION WIDTH 13.2 % (12.0-15.0); WHITE BLOOD COUNT 4.6 x10^3/uL (4.8-10.8)
[2023-01-03 05:33] LABS: CALCIUM 8.8 mg/dL (8.5-10.3); CREATININE 0.9 mg/dL (0.6-1.3); POTASSIUM 3.6 mmol/L (3.5-4.5)
[2023-01-03] MEDS ORDERED: PANTOPRAZOLE 40 MG TABLET PO SCH (07:00)
[2023-01-03] MEDS ORDERED: MULTIVITAMIN TABLET PO SCH (08:00)
[2023-01-03] MEDS: AMOX/CLAV 875 MG/125 MG TABLET PO SCH (08:59)
[2023-01-03] MEDS ORDERED: ASPIRIN CHEW 81 MG TABLET PO SCH (09:00)
[2023-01-03 10:18] VITALS: O2SAT 93
[2023-01-03 11:55] VITALS: BP 152/79
== END 2023-01-03 12:13 | disposition home or self-care (01) ==
LOC: EDUNIT# → ED 11:16
DX: U07.1 COVID-19 (principal); K86.9 Disease of pancreas, unspecified; I10 Essential (primary) hypertension; Z87.891 Personal history of nicotine dependence
CPT/HCPCS: 36415; 71045; 74177; 80048; 80053; 81001; 83605; 85025; 87040; 87086; 87181; 87633; 99284; A9270; J3490; Q9967; 81003

== ENCOUNTER 2023-12-29 08:45 | Outpatient (CLI) | payer MEDICARE ==
[~2023-12-29 08:45] MED LIST: GADOTERATE MEGLUMINE 10 MMOL/20 ML VIAL ONE
[2023-12-29 09:09] LABS: CREATININE 0.9 mg/dL (0.6-1.3)
[2023-12-29] MEDS: GADOTERATE MEGLUMINE 10 MMOL/20 ML VIAL IVP ONE (15:19)
--- NOTE | 2023-12-29 16:06 | MRI Report ---
PROCEDURE: Abdomen W/WO INDICATIONS: PANCREATIC CYST CONTRAST: 14.6ml Clariscan TECHNIQUE: Coronal ultra fast SE, axial 2D spoiled GE in- and [id number]; axial breath-hold T2 fast SE. Dynam ic axial ultra fast GE during the administration of contrast; post-contrast coronal ultra fast GE or 2D spoiled GE with fat saturation from the hepatic dome to the iliac crests. Optional diffusion weig hted imaging and ADC may be performed. COMPARISON: MR 11/10/2018, CT 01/02/2023 FINDINGS: Image quality: Excellent. Lung bases and heart: Unremarkable. Liver: No solid mass. Gallbladder and biliary tree: No radiopaque stones or wall thickening. No biliary dilation. Spleen: No splenomegaly. Pancreas: The pancreas is atrophic. Multiple T2 hyperintense cystic lesions throughout the pancreatic parenchyma, with growth of the dominant cysts from prior. For example, a 3.4 cm cyst in the pancreat ic head containing a thin internal septation previously measured 1.4 cm (series 3, image 14). There a re no suspicious features within the cysts. There is no pancreatic ductal dilation. Adrenals: No adrenal nodule. Kidneys and ureters: No hydronephrosis. No renal cystic lesion which requires follow up. No solid mas s. Bowel and peritoneum: No bowel distension. No pathologic free fluid. Diverticulosis without evidence of diverticulitis. Lymph nodes: No central or retroperitoneal adenopathy. Vessels: No infrarenal aortic aneurysm. Bones: No aggressive osseous abnormality. Other: No significant ventral hernia. IMPRESSION: Interval growth of the cystic lesions throughout the pancreatic parenchyma, many which don't demonstr ate connection to the pancreatic duct. Largest measures 3.4 cm, previously 1.4 cm using similar measu ring techniques. No suspicious features. No ductal dilation. Recommend GI referral for further manage ment in the setting of growth. Reviewed by: Vamsi Hernandez MD on 12/29/2023 4:04 PM PDT Approved by: Vamsi Hernandez MD on 12/29/2023 4:04 PM PDT Station ID: [id number]
== END 2023-12-29 08:46 | disposition home or self-care (01) ==
LOC: LAB 08:45
PROVIDERS: ATTEND Nurse Practitioner
DX: K86.2 Cyst of pancreas (principal)
CPT/HCPCS: 36415; 74183; 82565; A9575